=== PATIENT | female | born 1935 | race American Indian/Alaskan Native ===

== ENCOUNTER 2017-10-23 09:32 | Day surgery (SDC) | payer MEDICARE, OTHER ==
[2015-08-13 08:25] VITALS: BMI 34.4
[2017-10-23] MEDS ORDERED: Midazolam 2 MG/2 ML VIAL ONE (10:39)
--- NOTE | 2017-10-23 11:15 | CP.SDSHP ---
Same Day Surgery H & P - History Proposed Procedure: CT guided pancreatic mass biopsy Pre-Op Diagnosis: Pancreatic mass - Allergies Allergies: Allergies No Known Allergies Allergy (Verified 08/13/15 08:36) - Physical Exam Mental Status: Alert & Oriented x3 - Impression Impression: Pt with large pancreatic body mass. Plan CT guided core biopsy. INformed consent obtained and risk of vascular injury, visceral injury and bowel perforation discussed. Pt. Evaluated Today:Candidate for Anesthesia & Procedure: Yes (ASA 3 Malampati 3) - Date & Time Date: 10/23/17 Time: 11:45 Short Stay Discharge - Short Stay Discharge Admitting Diagnosis/Reason for Visit: MALIGNANT NEOPLASM OF UNSPECIFIED SITE OF LEFT FEM Disposition: HOME/ ROUTINE
--- NOTE | 2017-10-23 11:16 | PCM.SURG1 ---
Surgeon's Initial Post Op Note - Surgeon's Notes Surgeon: Marko Mejia MD [employer] Program Chair: NONE Type of Anesthesia: IV Sedation Pre-Operative Diagnosis: Pancreatic cancer Operative Findings: CT showed a large pancreatic body mass Post-Operative Diagnosis: Pancreatic cancer Operation Performed: CT guided pancreatic mass biopsy Specimen/Specimens Removed: 20 gauge core x 3 Estimated Blood Loss: EBL {In ML}: 0 Blood Products Given: N/A Drains Used: No Drains Post-Op Condition: Fair Date of Surgery/Procedure: 10/23/17 Time of Surgery/Procedure: 11:00
--- NOTE | 2017-10-24 13:04 | CT ---
PROCEDURE: Date of procedure: 10/23/2017 Procedure: 1. CT-guided percutaneous core biopsy of pancreatic mass, CPT [address] guidance for biopsy, CPT 15953 Medications: The patient was sedated by the anesthesiologist with IV sedation and monitoring, 5 cc 1% lidocaine. HISTORY: Pancreatic mass TECHNIQUE: Following informed consent, the Pt's Abdomen was marked. The Pt was placed supine on the CT table and procedure time out was performed. A noncontrast CT scan confirmed the presence of the 5 centimeter pancreatic body mass. A skin localizer was placed on the patient's abdomen and a repeat CT scan performed. The skin was prepped and draped in the usual sterile fashion. After the patient was sedated by anesthesiologist and the skin anesthetized with 1% lidocaine, a 20 gauge core needle was advanced percutaneously under direct CT guidance into the mass. Upon confirmation of needle position, three core specimens were obtained and sent for routine pathology. A post biopsy CT scan performed showed no hematoma or free air. A dressing was applied. IMPRESSION: CT-guided core biopsy of pancreatic body mass.
== END 2017-10-23 13:00 | disposition home or self-care (01) ==
LOC: C.CATHLAB 09:32 → C.SPRAD 09:32 → C.CATHLAB 13:00
PROVIDERS: ATTEND Radiology Vascular & Interventional Radiology
DX: C25.1 Malignant neoplasm of body of pancreas (principal); E11.9 Type 2 diabetes mellitus without complications; E78.5 Hyperlipidemia, unspecified; I10 Essential (primary) hypertension; Z79.84 Long term (current) use of oral hypoglycemic drugs
CPT/HCPCS: 48102; 77012; 88307; J2250; J3010

== ENCOUNTER 2018-03-02 09:01 | Emergency (ER) | payer MEDICARE, OTHER ==
[2018-03-02 09:01] VITALS: BMI 34.4
[2018-03-02 09:20] VITALS: BP 120/72; PULSE 82; RESP 16; TEMP 99.3; O2SAT 97
--- NOTE | 2018-03-02 09:32 | C.PDOC ---
History Of Present Illness 82-YEAR-OLD FEMALE, PRESENTS TO THE EMERGENCY DEPARTMENT WITH COMPLAINTS OF BREAKTHROUGH CANCER PAIN ONGOING SINCE YESTERDAY. PT CURRENTLY TREATED FOR PANCREATIC CA, DR NICE PREVIOUSLY PRESCRIBED TYL/CODEINE, BUT TOLD PT HE WILL BE UNABLE TO PRESCRIBE IT FOR HER GOING FORWARD. SHE NORMALLY TAKES IT EVERYDAY , BUT RAN OUT ONE WEEK AGO. CURRENT PAIN IS SIMILAR TO PREVIOUS CA PAIN, STATES "EVERYTHING HURTS." DENIES ANY VOMITING, FEVER. EXAM NAD NON TOXIC ABD SOFT, NONTEN, NO R/G REMAINDER NEG Chief Complaint (Nursing): Pain, Chronic History Per: Patient History/Exam Limitations: no limitations Onset/Duration Of Symptoms: Days Current Symptoms Are (Timing): Still Present Severity: Moderate Past Medical History Reviewed: Historical Data, Nursing Documentation, Vital Signs Vital Signs: Last Vital Signs Temp 99.3 F 03/02/18 09:05 Pulse 82 03/02/18 09:05 Resp 16 03/02/18 09:05 BP 120/72 03/02/18 09:05 Pulse Ox 97 03/02/18 09:47 - Medical History PMH: Anemia, Arthritis (KNEES), Colonic Polyps, HTN, Hypercholesterolemia Denies: CHF, Chronic Kidney Disease Surgical History: Endoscopy - [facility] Procedures ENDOSC POLYPECTOMY OF LG INTEST (04/28/14) Family History: States: No Known Family Hx - Social History Hx Tobacco Use: No Hx Alcohol Use: No Hx Substance Use: No - Immunization History Hx Tetanus Toxoid Vaccination: No Hx Influenza Vaccination: No Hx Pneumococcal Vaccination: Yes Review Of Systems Constitutional: Positive for: Malaise. Negative for: Fever, Chills Cardiovascular: Negative for: Chest Pain, Palpitations Respiratory: Negative for: Shortness of Breath Gastrointestinal: Negative for: Nausea, Vomiting Musculoskeletal: Negative for: Neck Pain, Back Pain Neurological: Negative for: Weakness, Numbness, Headache, Dizziness Physical Exam - Physical Exam Appears: Non-toxic, No Acute Distress Skin: Normal Color, Warm, Dry, No Rash Head: Atraumatic, Normacephalic Eye(s): bilateral: Normal Inspection, PERRL Nose: Normal Oral Mucosa: Moist Lips: Normal Appearing Neck: Normal ROM Cardiovascular: Rhythm Regular, No Murmur Respiratory: Normal Breath Sounds, No Accessory Muscle Use Gastrointestinal/Abdominal: Soft, No Tenderness, No Guarding, No Rebound Extremity: Normal ROM, No Deformity, No Swelling Neurological/Psych: Oriented x3, Normal Speech ED Course And Treatment O2 Sat by Pulse Oximetry: 97 (ra) Pulse Ox Interpretation: Normal Progress - Re-Evaluation Re-evaluation Note: 03/02/18 09:17 nj rx REVIEWED 01/22/2018 DRONABINOL 2.5 MG CAPSULE 30.0 30 [id number] 01/04/2018 ACETAMINOPHEN-COD #3 TABLET 50.0 10 WA SIE Medical Decision Making Medical Decision Making: PAIN MANAGEMENT REFERRAL GIVEN, PT AADVISED NEED FOR LONG-TERM F.U Disposition Counseled Patient/Family Regarding: Diagnosis, Need For Followup - Disposition Referrals: Eddie Salazar MD [Staff Provider] - Disposition: HOME/ ROUTINE Disposition Time: 09:32 Condition: IMPROVED Prescriptions: Acetaminophen with Codeine [Tylenol with Codeine No. 3 300 mg-30 mg] 1 tab PO Q6 #15 tab Instructions: Chronic Pain (DC) Forms: The [employer]oken [employer] (Yakut) - Clinical Impression Clinical Impression: Chronic pain - Scribe Statement The provider has reviewed the documentation as recorded by the Scribe (Kevin Lawson) All medical record entries made by the Scribe were at my direction and personally dictated by me. I have reviewed the chart and agree that the record accurately reflects my personal performance of the history, physical exam, medical decision making, and the department course for this patient. I have also personally directed, reviewed, and agree with the discharge instructions and disposition.
[2018-03-02] MEDS ORDERED: Acetaminophen-Codeine 300/30 mg Tab PO STA (09:33)
[2018-03-02] MEDS ORDERED: Acetaminophen-Codeine 300/30 mg Tab PO ONE (09:41)
== END 2018-03-02 09:46 | disposition home or self-care (01) ==
LOC: C.ER 09:01
DX: G89.29 Other chronic pain (principal); C25.1 Malignant neoplasm of body of pancreas

== ENCOUNTER 2018-03-19 13:45 | Inpatient (IN) | payer MEDICARE, OTHER ==
[2018-03-19 13:57] VITALS: BMI 26.2
[2018-03-19] MEDS ORDERED: Sodium Chloride 0.9% 1,000 ML IV ONE ×2 (14:09→18:36)
[2018-03-19] MEDS ORDERED: Sodium Chloride 0.9% 1,000 ML ONE (14:46)
--- NOTE | 2018-03-19 14:55 | C.PDOC ---
History Of Present Illness 83 y/o female with history of Pancreatic carcinoma presents to ED for persistent abdominal pain and constipation associated with x1 episode of vomiting. Patient states 5 days ago she had loose stool and has not had bowel movement since, saw PMD yesterday and was given Tylenol with Codeine for pain with no relief. Patient admits to nausea and states she is unable to tolerate po intake. No other complaints at this time. Time Seen by Provider: 03/19/18 14:04 Chief Complaint (Nursing): Abdominal Pain History Per: Patient History/Exam Limitations: no limitations Onset/Duration Of Symptoms: Days Current Symptoms Are (Timing): Still Present Past Medical History Reviewed: Historical Data, Nursing Documentation, Vital Signs Vital Signs: Last Vital Signs Temp 98.3 F 03/19/18 18:42 Pulse 102 H 03/19/18 18:42 Resp 20 03/19/18 18:42 BP 110/68 03/19/18 18:42 Pulse Ox 98 03/19/18 18:42 - Medical History PMH: Anemia, Arthritis (KNEES), Colonic Polyps, HTN, Hypercholesterolemia Surgical History: Endoscopy - [facility] Procedures ENDOSC POLYPECTOMY OF LG INTEST (04/28/14) Family History: States: No Known Family Hx - Social History Hx Tobacco Use: No Hx Alcohol Use: No Hx Substance Use: No - Immunization History Hx Tetanus Toxoid Vaccination: No Hx Influenza Vaccination: No Hx Pneumococcal Vaccination: Yes Review Of Systems Constitutional: Negative for: Fever, Chills Gastrointestinal: Positive for: Nausea, Vomiting, Abdominal Pain, Constipation Genitourinary: Negative for: Dysuria, Hematuria Skin: Negative for: Rash Physical Exam - Physical Exam Appears: Non-toxic, No Acute Distress Skin: Warm, Dry, No Rash Head: Atraumatic, Normacephalic Eye(s): bilateral: Normal Inspection Oral Mucosa: Dry Neck: Normal ROM, Supple Cardiovascular: Rhythm Regular Respiratory: Normal Breath Sounds, No Rales, No Rhonchi, No Wheezing Gastrointestinal/Abdominal: Soft, Tenderness (Diffuse), Guarding, No Rebound Back: No CVA Tenderness, No Paraspinal Tenderness Neurological/Psych: Oriented x3, Normal Speech, Normal Cognition ED Course And Treatment - Laboratory Results Result Diagrams: 03/19/18 15:20 03/19/18 15:20 Lab Interpretation: Abnormal (Hgb 9.7, Hct 29.7, BUN 35, Cr 1.6 urine WBC 79 with 3+ leukocyte esterase) ECG: Interpreted By Mo ECG Rhythm: Sinus Tachycardia ECG Interpretation: No Acute Changes O2 Sat by Pulse Oximetry: 97 (RA) Pulse Ox Interpretation: Normal - CT Scan/US CT abdomen and pelvis Other Rad Studies (CT/US): Read By Radiologist, Radiology Report Reviewed CT/US Interpretation: Accession No. : [id number]. Patient Name / ID : MAGALIE PINA / [id number]. Exam Date : 03/19/2018 17:38:50 ( Approved ). Study Comment : Sex / Age : F / 83Y. Creator : Heather Anders MD. Dictator : Heather Anders MD. Wood Caulker : Fish Hatchery Manager : Heather Anders MD. Approver2 : Report Date : 03/19/2018 18:21:32. My Comment : . PROCEDURE: CT Abdomen and Pelvis with contrast. HISTORY: Pancreatic cancer with abdominal pain. COMPARISON: None. TECHNIQUE: CT scan of the abdomen and pelvis was performed after administration of intravenous contrast. Oral contrast was administered. Coronal and sagittal reformatted images were obtained. Contrast dose: 100 mL Visipaque. Radiation dose: Total exam DLP = 609.08 mGy-cm. This CT exam was performed using one or more of the following dose reduction techniques: Automated exposure control, adjustment of the mA and/ or kV according to patient size, and/or use of iterative reconstruction technique. FINDINGS: LOWER THORAX: Bilateral small pleural effusions. LIVER : The liver is normal in size and there is diffuse low-attenuation with micronodular contour. There is a 10 mm low-attenuation lesion in the subcapsular right hepatic lobe. No intrahepatic biliary ductal dilatation. GALLBLADDER AND BILE DUCTS: The gallbladder is distended. No calcified gallstones. PANCREAS: There is a large infiltrating mass in the body of the pancreas. The head of the pancreas is not well visualized. There is loss of fat plane between the mass and greater curvature of the stomach and gastric antrum. SPLEEN: Normal in size and appearance. ADRENALS: No discrete nodule. KIDNEYS AND URETERS: Both kidneys are normal in size with homogeneous enhancement. No hydronephrosis. Few simple cysts in the kidneys. VASCULATURE: No aortic aneurysm. BOWEL: The small bowel loops are normal in caliber. There is moderate amount of stool in the ascending and proximal transverse colon. There is extensive left colonic diverticulosis without CT evidence for acute diverticulitis. APPENDIX: Normal appendix. PERITONEUM: There is large abdominal and pelvic ascites. No free air. LYMPH NODES: There are few left para-aortic lymph nodes measuring up to 7 mm. . BLADDER: Unremarkable. REPRODUCTIVE: The uterus is normal in size. BONES: No acute fracture. There is diffuse bone demineralization and multilevel degenerative changes in the spine. OTHER FINDINGS: None. IMPRESSION: 1. Large mass in the body of the pancreas with probable invasion of the greater curvature of the stomach and gastric antrum. 2. Large abdominal and pelvic ascites. Small bilateral pleural effusions. 3. Fatty liver with question of hepatic cirrhosis. 10 mm low- density nodule in the subcapsular right hepatic lobe, metastatic deposit cannot be excluded. 4. Left colonic diverticulosis without CT evidence for acute diverticulitis - Physician Consult Information Time Consulting Physician Contacted: 18:38 Physician Contacted: Andressa Silva Outcome Of Conversation: He knows the patient and agrees to accept her on his service. Disposition - Disposition Disposition: HOSPITALIZED Disposition Time: 19:45 Condition: FAIR - POA Present On Arrival: None - Clinical Impression Clinical Impression: Abdominal pain, Pancreatic cancer - Scribe Statement The provider has reviewed the documentation as recorded by the Ko Antonio All medical record entries made by the Ko were at my direction and personally dictated by me. I have reviewed the chart and agree that the record accurately reflects my personal performance of the history, physical exam, medical decision making, and the department course for this patient. I have also personally directed, reviewed, and agree with the discharge instructions and disposition.
[2018-03-19 15:26] LABS: BASO % 0.3 % (0.0-2.0); EOS % 0.3 % (0.0-4.0); LYMPH # 0.4 K/uL (1.0-4.3); LYMPH % 6.5 % (20.0-40.0); MEAN CORPUSCULAR HEMOGLOBIN 29.7 pg (27.0-31.0); MEAN CORPUSCULAR HGB CONC 32.7 g/dL (33.0-37.0); MEAN PLATELET VOLUME 8.3 fL (7.2-11.7); MONO # 0.7 K/uL (0.0-0.8); NEUT % 80.9 % (50.0-75.0); PLATELET COUNT 209 K/uL (130-400); RBC 3.27 Mil/uL (3.80-5.20)
[2018-03-19 15:27] LABS: HEMOGLOBIN 9.7 g/dL (11.0-16.0); MEAN CELL VOLUME 90.6 fL (81.0-99.0); WHITE BLOOD COUNT 6.2 K/uL (4.8-10.8)
--- NOTE | 2018-03-19 15:30 | RAD ---
PROCEDURE: Radiographs of the chest and abdomen (obstructive series) HISTORY: Pain COMPARISON: No prior. TECHNIQUE: AP radiograph of the chest, with upright and supine radiographs of the abdomen. FINDINGS: CHEST: Lungs: The lungs are well inflated. Small left pleural effusion. Cardiovascular: Normal size heart. No pulmonary vascular congestion. Pleura: No pleural fluid. No pneumothorax. Other findings: None. ABDOMEN AND PELVIS: Bowel: There is moderate amount of stool in the colon. No evidence of mechanical obstruction. Free air: None. Bones: There is severe dextroscoliosis in the lumbar spine and postsurgical changes of lower lumbar fusion. Other findings: None. IMPRESSION: Constipation. Nonobstructive bowel gas pattern. Small left pleural effusion.
[2018-03-19] MEDS ORDERED: Iohexol 240 (50 ml) ONE (15:46)
[2018-03-19 15:53] LABS: BANDS 1 % (0-2); BASOPHIL 1 % (0-2); LYMPHOCYTE 7 % (20-40); MONOCYTE 10 % (0-10); NEUTROPHIL 81 % (50-75); PLATELET ESTIMATE NORMAL (NORMAL); TOTAL CELLS COUNTED 100
[2018-03-19 15:54] LABS: ANISOCYTOSIS SLIGHT; HYPOCHROMIC SLIGHT; OVALOCYTES SLIGHT; POIKILOCYTOSIS SLIGHT; TARGET CELLS SLIGHT
[2018-03-19 15:58] LABS: ALB/GLOB RATIO 0.9 (1.0-2.1); ALBUMIN 3.5 g/dL (3.5-5.0); CALCIUM 9.1 mg/dl (8.6-10.4)
[2018-03-19 16:37] LABS: SQUAMOUS EPITHIAL 30 /hpf (0-5); URINE BACTERIA RARE (<OCC); URINE BILIRUBIN NEGATIVE (NEGATIVE); URINE BLOOD NEGATIVE (NEGATIVE); URINE CLARITY Hazy (Clear); URINE COLOR Amber (YELLOW); URINE GLUCOSE (UA) NORMAL (Normal); URINE LEUKOCYTE ESTERASE 3+ Leu/uL (Negative); URINE PROTEIN 2+ mg/dL (NEGATIVE)
[2018-03-19] MEDS ORDERED: Iodixanol 320 MG/ML 100 ML BOTTLE IV ONE (17:26)
--- NOTE | 2018-03-19 18:23 | CT ---
PROCEDURE: CT Abdomen and Pelvis with contrast HISTORY: Pancreatic cancer with abdominal pain COMPARISON: None. TECHNIQUE: CT scan of the abdomen and pelvis was performed after administration of intravenous contrast. Oral contrast was administered. Coronal and sagittal reformatted images were obtained. Contrast dose: 100 mL Visipaque Radiation dose: Total exam DLP = 609.08 mGy-cm. This CT exam was performed using one or more of the following dose reduction techniques: Automated exposure control, adjustment of the mA and/or kV according to patient size, and/or use of iterative reconstruction technique. FINDINGS: LOWER THORAX: Bilateral small pleural effusions. LIVER: The liver is normal in size and there is diffuse low-attenuation with micronodular contour. There is a 10 mm low-attenuation lesion in the subcapsular right hepatic lobe. No intrahepatic biliary ductal dilatation. GALLBLADDER AND BILE DUCTS: The gallbladder is distended. No calcified gallstones. PANCREAS: There is a large infiltrating mass in the body of the pancreas. The head of the pancreas is not well visualized. There is loss of fat plane between the mass and greater curvature of the stomach and gastric antrum. SPLEEN: Normal in size and appearance. ADRENALS: No discrete nodule. KIDNEYS AND URETERS: Both kidneys are normal in size with homogeneous enhancement. No hydronephrosis. Few simple cysts in the kidneys. VASCULATURE: No aortic aneurysm. BOWEL: The small bowel loops are normal in caliber. There is moderate amount of stool in the ascending and proximal transverse colon. There is extensive left colonic diverticulosis without CT evidence for acute diverticulitis. APPENDIX: Normal appendix. PERITONEUM: There is large abdominal and pelvic ascites. No free air. LYMPH NODES: There are few left para-aortic lymph nodes measuring up to 7 mm. . BLADDER: Unremarkable. REPRODUCTIVE: The uterus is normal in size. BONES: No acute fracture. There is diffuse bone demineralization and multilevel degenerative changes in the spine. OTHER FINDINGS: None. IMPRESSION: 1. Large mass in the body of the pancreas with probable invasion of the greater curvature of the stomach and gastric antrum. 2. Large abdominal and pelvic ascites. Small bilateral pleural effusions. 3. Fatty liver with question of hepatic cirrhosis. 10 mm low-density nodule in the subcapsular right hepatic lobe, metastatic deposit cannot be excluded. 4. Left colonic diverticulosis without CT evidence for acute diverticulitis
[2018-03-19 21:49] VITALS: RESP 20
[2018-03-19] MEDS ORDERED: HYDROmorphone 1 mg/ml ISec IVP PRN (22:23)
[2018-03-19] MEDS ORDERED: Dextrose 5%/0.45% NS 1,000 ML IV SCH (22:45)
--- NOTE | 2018-03-20 00:34 | CP.PCM.PN ---
Subjective - Date & Time of Evaluation Date of Evaluation: 03/20/18 Time of Evaluation: 07:00 - Subjective Subjective: Patient was alert and oriented x3. Patient stated she was in [facility]; year 2017; month February; day of the week - soon to be ; current president Carlos Bonilla. Patient signed against medical advice. Objective - Vital Signs/Intake and Output Vital Signs (last 24 hours): Temp Pulse Resp BP Pulse Ox 98.3 F 101 H 20 152/82 H 96 03/19/18 21:30 03/19/18 21:30 03/19/18 21:30 03/19/18 21:30 03/19/18 21:30 - Medications Medications: Current Medications Dicyclomine HCl (Bentyl) 10 mg PO QID BANDAR Dronabinol (Marinol) 2.5 mg PO BID BANDAR Heparin Sodium (Porcine) (Heparin) 5,000 units SC Q8 BANDAR Hydromorphone HCl (Dilaudid) 1 mg IVP Q4H PRN PRN Reason: Pain, moderate (4-7) Dextrose/Sodium Chloride (Dextrose 5%/0.45% Ns 1000 Ml) 1,000 mls @ 100 mls/hr IV .Q10H BANDAR Losartan Potassium (Cozaar) 100 mg PO DAILY BANDAR Metformin HCl (Glucophage) 500 mg PO BIDPC BANDAR Pantoprazole Sodium (Protonix Ec Tab) 40 mg PO DAILY BANDAR Tamoxifen Citrate (Nolvadex) 20 mg PO DAILY BANDAR - Labs Labs: 03/19/18 15:20 03/19/18 15:20
[2018-03-20 02:09] VITALS: BP 145/85; PULSE 98; TEMP 98.5; O2SAT 98
[2018-03-20] MEDS ORDERED: Pantoprazole 40 mg EC Tab PO SCH (10:00)
== END 2018-03-20 00:36 | disposition left against medical advice (07) | DRG 392 ==
LOC: C.ER 13:45 → C.9E 19:46 → C.3T 20:49
PROVIDERS: ADMIT Internal Medicine Critical Care Medicine; ATTEND Internal Medicine Critical Care Medicine
DX: R10.9 Unspecified abdominal pain (principal); I10 Essential (primary) hypertension; K59.00 Constipation, unspecified; M17.0 Bilateral primary osteoarthritis of knee; E78.00 Pure hypercholesterolemia, unspecified; R11.0 Nausea; Z85.07 Personal history of malignant neoplasm of pancreas

== ENCOUNTER 2018-03-21 21:00 | Inpatient (IN) | payer MEDICARE, OTHER ==
[2018-03-21 21:00] VITALS: BMI 26.2
[2018-03-21] MEDS ORDERED: Morphine 4 MG/ML VIAL IV STA (21:34)
[2018-03-21 21:41] LABS: BASO % 0.3 % (0.0-2.0); EOS % 0.4 % (0.0-4.0); HEMOGLOBIN 9.7 g/dL (11.0-16.0); LYMPH # 0.6 K/uL (1.0-4.3); LYMPH % 7.9 % (20.0-40.0); MEAN CELL VOLUME 91.6 fL (81.0-99.0); MEAN CORPUSCULAR HEMOGLOBIN 29.6 pg (27.0-31.0); MEAN CORPUSCULAR HGB CONC 32.3 g/dL (33.0-37.0); MEAN PLATELET VOLUME 8.3 fL (7.2-11.7); MONO # 0.7 K/uL (0.0-0.8); MONO % 9.8 % (0.0-10.0); NEUT # 6.2 K/uL (1.8-7.0); NEUT % 81.6 % (50.0-75.0); NRBC % 0.1 % (0.0-2.0); PLATELET COUNT 173 K/uL (130-400); RBC 3.29 Mil/uL (3.80-5.20); RED CELL DISTRIBUTION WIDTH 14.7 % (11.5-14.5); WHITE BLOOD COUNT 7.6 K/uL (4.8-10.8)
[2018-03-21] MEDS ORDERED: Morphine 4 MG/ML VIAL ONE (21:50)
[2018-03-21 21:56] LABS: ALB/GLOB RATIO 0.9 (1.0-2.1); ALBUMIN 3.2 g/dL (3.5-5.0); CALCIUM 8.7 mg/dl (8.6-10.4); GFR AFRICAN-AMERICAN > 60; GFR NON-AFRICAN AMERICAN 53; LIPASE 29 U/L (23-300)
[2018-03-21 21:59] LABS: ALT/SGPT 30 U/L (9-52); AST/SGOT 47 U/L (14-36); BLOOD UREA NITROGEN 42 mg/dL (7-17)
[2018-03-21 22:07] LABS: LYMPHOCYTE 7 % (20-40); MONOCYTE 4 % (0-10); NEUTROPHIL 89 % (50-75); PLATELET ESTIMATE NORMAL (NORMAL); TOTAL CELLS COUNTED 100
[2018-03-21 22:08] LABS: HYPOCHROMIC SLIGHT; OVALOCYTES SLIGHT; POLYCHROMIC SLIGHT
[2018-03-21] MEDS: Sodium Chloride 0.9% 1,000 ML IV SCH (22:21)
--- NOTE | 2018-03-22 00:23 | C.PDOC ---
History Of Present Illness 83 year old female with a Hx of pancreatic ca presents to the ER with a complaint of diffuse abdominal pain and decreased PO intake. Patient was seen for the same symptoms 2 days ago and was admitted but signed out AMA yesterday. Patient states she continues to be in pain. She reports positive nausea but denies vomiting, blood in the stool, or blood in the urine. Chief Complaint (Nursing): Abdominal Pain History Per: Patient History/Exam Limitations: no limitations Onset/Duration Of Symptoms: Days Current Symptoms Are (Timing): Still Present Location Of Pain/Discomfort: Diffuse Radiation Of Pain To:: None Quality Of Discomfort: Unable To Describe Associated Symptoms: Nausea. denies: Vomiting, Urinary Symptoms, Other (Blood in stool) Exacerbating Factors: None Alleviating Factors: None Recent travel outside of the [place]: No Abnormal Vaginal Bleeding: No Past Medical History Reviewed: Historical Data, Nursing Documentation, Vital Signs Vital Signs: Last Vital Signs Temp 98.7 F 03/22/18 00:10 Pulse 116 H 03/22/18 00:10 Resp 20 03/22/18 00:10 BP 102/66 03/22/18 00:10 Pulse Ox 97 03/22/18 00:29 - Medical History PMH: Anemia, Arthritis (KNEES), Colonic Polyps, HTN, Hypercholesterolemia Surgical History: Endoscopy - [facility] Procedures ENDOSC POLYPECTOMY OF LG INTEST (04/28/14) Family History: States: No Known Family Hx - Social History Hx Tobacco Use: No Hx Alcohol Use: No Hx Substance Use: No - Immunization History Hx Tetanus Toxoid Vaccination: No Hx Influenza Vaccination: No Hx Pneumococcal Vaccination: Yes Review Of Systems Constitutional: Negative for: Fever, Chills Cardiovascular: Negative for: Chest Pain, Palpitations Respiratory: Negative for: Cough, Shortness of Breath Gastrointestinal: Positive for: Nausea, Abdominal Pain. Negative for: Vomiting , Other (Blood in stool) Genitourinary: Negative for: Hematuria Physical Exam - Physical Exam Appears: Non-toxic Skin: Normal Color, Warm, Dry Head: Atraumatic, Normacephalic Eye(s): bilateral: Normal Inspection Oral Mucosa: Dry Neck: Normal, Supple Chest: Symmetrical, No Tenderness Cardiovascular: Rhythm Regular Respiratory: Normal Breath Sounds, No Rales, No Rhonchi, No Wheezing Gastrointestinal/Abdominal: Soft, Tenderness (Diffuse), Distention (Slightly), No Guarding, No Rebound Back: No CVA Tenderness Neurological/Psych: Oriented x3, Normal Speech ED Course And Treatment - Laboratory Results Result Diagrams: 03/21/18 21:34 03/21/18 21:34 O2 Sat by Pulse Oximetry: 97 (Room air) Pulse Ox Interpretation: Normal Progress Note: Blood work and urinalysis ordered. Morphine and IV fluids administered. Disposition - Disposition Disposition: HOSPITALIZED Disposition Time: 22:40 Condition: FAIR - Clinical Impression Clinical Impression: Abdominal pain, Pancreatic cancer - Scribe Statement The provider has reviewed the documentation as recorded by the Scribromeo Mccarthy All medical record entries made by the eRidibromeo were at my direction and personally dictated by me. I have reviewed the chart and agree that the record accurately reflects my personal performance of the history, physical exam, medical decision making, and the department course for this patient. I have also personally directed, reviewed, and agree with the discharge instructions and disposition.
[2018-03-22 00:39] VITALS: RESP 20
[2018-03-22] MEDS: Sodium Chloride 0.9% 1,000 ML IV SCH ×3 (06:10→17:51)
[2018-03-22] MEDS: Pantoprazole 40 mg EC Tab PO SCH (09:57)
--- NOTE | 2018-03-22 17:01 | CP.PCM.CON ---
Addendum entered and electronically signed by Miranda Enriquez DO 03/23/18 06:27: Pt refusing surgical care. Advance diet as tolerated Pain control/Nausea control We will sign off. HANDY Reis Original Note: <Miranda Enriquez - Last Filed: 03/22/18 17:02> History of Present Illness - History of Present Illness History of Present Illness: Surgery 83 F w recent dx of pancreatic CA this year came with abd pain and vomiting. Pain in located on mid abd area and doesn't radiate. Reports nausea , vomiting gastric content, anorexia and recent weight loss. denies fever, diarrhea, hematochezia, hematemeis, hematuria. Pt was admitted earlier this week for same symptoms but left AMA when she felt better. NGT was placed at that time for obstructive sx. currently pt is comfortable and denies vomiting. Refusing NGT. 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 PT underwent radiation therapy at [facility] and completed the therapy. Pt had spoken about possible surgical resection in the past with different surgeon at [facility] but because of her age, cormorbidity and risks involved with surgery, pt declined to do surgery. PMH: HTN, pancreatic CA s/p radiation therapy PSH: None SS: former smoker, drinks occasionally, denies drug abuse. Past Patient History - Infectious Disease Hx of Infectious Diseases: None - Tetanus Immunizations Tetanus Immunization: Unknown - Past Medical History & Family History Past Medical History?: Yes - Past Social History Smoking Status: Never Smoked - CARDIAC Hx Hypercholesterolemia: Yes Hx Hypertension: Yes - PULMONARY Hx Respiratory Disorders: No - NEUROLOGICAL Hx Neurological Disorder: No Other/Comment: "NO LONGER ON GABAPENTIN-NO FURTHER TINGLING." - HEENT Hx HEENT Problems: Yes Hx Cataracts: Yes (BILAT.) - RENAL Hx Chronic Kidney Disease: No - ENDOCRINE/METABOLIC Hx Endocrine Disorders: Yes Hx Diabetes Mellitus Type 2: Yes - HEMATOLOGICAL/ONCOLOGICAL Hx Anemia: Yes - INTEGUMENTARY Hx Dermatological Problems: No - MUSCULOSKELETAL/RHEUMATOLOGICAL Hx Arthritis: Yes (KNEES) - GASTROINTESTINAL Hx Gastrointestinal Disorders: Yes Other/Comment: HX: PANCREATIC MASS - GENITOURINARY/GYNECOLOGICAL Hx Genitourinary Disorders: No - PSYCHIATRIC Hx Substance Use: No - SURGICAL HISTORY Other/Comment: Left breast lumpectomy - ANESTHESIA Hx Anesthesia: Yes Hx Anesthesia Reactions: No Hx Malignant Hyperthermia: No Meds Allergies/Adverse Reactions: Allergies Allergy/AdvReac Type Severity Reaction Status Date / Time No Known Allergies Allergy Verified 03/21/18 21:12 - Medications Medications: Current Medications Dicyclomine HCl (Bentyl) 10 mg PO QID [facility] Last Admin: 03/22/18 14:17 Dose: 10 mg Dronabinol (Marinol) 2.5 mg PO DAILY [facility] Last Admin: 03/22/18 09:57 Dose: 2.5 mg Heparin Sodium (Porcine) (Heparin) 5,000 units SC Q8 [facility] Last Admin: 03/22/18 14:17 Dose: 5,000 units Hydromorphone HCl (Dilaudid) 1 mg IVP Q4H PRN PRN Reason: Pain, severe (8-10) Sodium Chloride (Sodium Chloride 0.9%) 1,000 mls @ 100 mls/hr IV .Q10H [facility] Last Admin: 03/22/18 08:00 Dose: Not Given Losartan Potassium (Cozaar) 100 mg PO DAILY [facility] Last Admin: 03/22/18 09:57 Dose: 100 mg Metformin HCl (Glucophage) 500 mg PO BID [facility] Last Admin: 03/22/18 09:46 Dose: Not Given Ondansetron HCl (Zofran Inj) 4 mg IVP Q4H PRN PRN Reason: nausea,vomiting Pantoprazole Sodium (Protonix Ec Tab) 40 mg PO DAILY [facility] Last Admin: 03/22/18 09:57 Dose: 40 mg Tamoxifen Citrate (Nolvadex) 20 mg PO DAILY [facility] Last Admin: 03/22/18 10:04 Dose: 20 mg Physical Exam - Constitutional Appears: No Acute Distress - Head Exam Head Exam: ATRAUMATIC, NORMAL INSPECTION, NORMOCEPHALIC - Eye Exam Eye Exam: EOMI, Normal appearance, PERRL Pupil Exam: NORMAL ACCOMODATION, PERRL - Neck Exam Neck exam: Positive for: Normal Inspection - Respiratory Exam Respiratory Exam: NORMAL BREATHING PATTERN - Cardiovascular Exam Cardiovascular Exam: Tachycardia, REGULAR RHYTHM, +S1, +S2 - GI/Abdominal Exam GI & Abdominal Exam: Soft, Tenderness. absent: Distended, Firm, Guarding, Hernia, Rebound, Rigid Additional comments: mild fluid waves - Exam Exam: NORMAL INSPECTION - Extremities Exam Extremities exam: Positive for: full ROM, normal inspection - Back Exam Back exam: NORMAL INSPECTION - Neurological Exam Neurological exam: Alert, CN II-XII Intact, Normal Gait, Oriented x3, Reflexes Normal - Psychiatric Exam Psychiatric exam: Normal Affect, Normal Mood - Skin Skin Exam: Dry, Intact, Normal Color, Warm Results - Vital Signs Recent Vital Signs: Last Vital Signs Temp 97.3 F L 03/22/18 15:00 Pulse 110 H 03/22/18 15:00 Resp 20 03/22/18 15:00 BP 167/80 H 03/22/18 15:00 Pulse Ox 98 03/22/18 15:00 - Labs Result Diagrams: 03/21/18 21:34 03/21/18 21:34 Labs: Laboratory Results - last 24 hr 03/21/18 03/21/18 03/22/18 21:34 21:34 06:16 WBC 7.6 RBC 3.29 L Hgb 9.7 L Hct 30.1 L MCV 91.6 MCH 29.6 MCHC 32.3 L RDW 14.7 H Plt Count 173 MPV 8.3 Neut % (Auto) 81.6 H Lymph % (Auto) 7.9 L [place] % (Auto) 9.8 Eos % (Auto) 0.4 Baso % (Auto) 0.3 Neut # (Auto) 6.2 Lymph # (Auto) 0.6 L [place] # (Auto) 0.7 Eos # (Auto) 0.0 Baso # (Auto) 0.0 Neutrophils % (Manual) 89 H Lymphocytes % (Manual) 7 L Monocytes % (Manual) 4 Platelet Estimate Normal Polychromasia Slight Hypochromasia (manual) Slight Ovalocytes Slight Sodium 140 Potassium 5.2 Chloride 102 Carbon Dioxide 24 Anion Gap 20 BUN 42 H Creatinine 1.0 Est GFR ( Amer) > 60 Est GFR (Non-Af Amer) 53 POC Glucose (mg/dL) 149 H Random Glucose 166 H Calcium 8.7 Total Bilirubin 1.0 AST 47 H ALT 30 Alkaline Phosphatase 56 Total Protein 7.0 Albumin 3.2 L Globulin 3.8 Albumin/Globulin Ratio 0.9 L Lipase 29 03/22/18 12:03 WBC RBC Hgb Hct MCV MCH MCHC RDW Plt Count MPV Neut % (Auto) Lymph % (Auto) [place] % (Auto) Eos % (Auto) Baso % (Auto) Neut # (Auto) Lymph # (Auto) [place] # (Auto) Eos # (Auto) Baso # (Auto) Neutrophils % (Manual) Lymphocytes % (Manual) Monocytes % (Manual) Platelet Estimate Polychromasia Hypochromasia (manual) Ovalocytes Sodium Potassium Chloride Carbon Dioxide Anion Gap BUN Creatinine Est GFR ( Amer) Est GFR (Non-Af Amer) POC Glucose (mg/dL) 161 H Random Glucose Calcium Total Bilirubin AST ALT Alkaline Phosphatase Total Protein Albumin Globulin Albumin/Globulin Ratio Lipase Assessment & Plan - Assessment and Plan (Free Text) Assessment: 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 Reis <Maco Reis - Last Filed: 03/23/18 20:43> Meds - Medications Medications: Current Medications Dicyclomine HCl (Bentyl) 10 mg PO QID [facility] Last Admin: 03/23/18 18:24 Dose: 10 mg Dronabinol (Marinol) 2.5 mg PO DAILY [facility] Last Admin: 03/23/18 09:47 Dose: 2.5 mg Heparin Sodium (Porcine) (Heparin) 5,000 units SC Q8 [facility] Last Admin: 03/23/18 13:15 Dose: 5,000 units Hydromorphone HCl (Dilaudid) 1 mg IVP Q4H PRN PRN Reason: Pain, severe (8-10) Last Admin: 03/22/18 23:58 Dose: 1 mg Sodium Chloride (Sodium Chloride 0.9%) 1,000 mls @ 100 mls/hr IV .Q10H [facility] Last Admin: 03/23/18 13:22 Dose: 100 mls/hr Losartan Potassium (Cozaar) 100 mg PO DAILY [facility] Last Admin: 03/23/18 09:42 Dose: 100 mg Metformin HCl (Glucophage) 500 mg PO BID [facility] Last Admin: 03/23/18 18:24 Dose: Not Given Ondansetron HCl (Zofran Inj) 4 mg IVP Q4H PRN PRN Reason: nausea,vomiting Pantoprazole Sodium (Protonix Ec Tab) 40 mg PO DAILY [facility] Last Admin: 03/23/18 09:42 Dose: 40 mg Tamoxifen Citrate (Nolvadex) 20 mg PO DAILY [facility] Last Admin: 03/23/18 09:42 Dose: 20 mg Results - Vital Signs Recent Vital Signs: Last Vital Signs Temp 98 F 03/23/18 15:00 Pulse 120 H 03/23/18 15:00 Resp 20 03/23/18 15:00 BP 108/68 03/23/18 15:00 Pulse Ox 97 03/23/18 15:00 - Labs Result Diagrams: 03/21/18 21:34 03/21/18 21:34 Labs: Laboratory Results - last 24 hr 03/22/18 03/22/18 03/23/18 16:24 21:27 06:29 POC Glucose (mg/dL) 133 H 124 H 136 H 03/23/18 03/23/18 11:23 16:13 POC Glucose (mg/dL) 123 H 104 Attending/Attestation - Attestation I have personally seen and examined this patient.: Yes I have fully participated in the care of the patient.: Yes I have reviewed all pertinent clinical information: Yes Notes (Text): Pt was seen and examined at bedside Agree with above note and assessment Pt with advanced stage pancreatic cancer Labs and radiology reviewed Ass: Advanced stage pancreatic cancer Pt is refusing any surgical intervention C.w current mx Hospice care Plan d.w pt in detail Risk and benefit explained in detail
[2018-03-22 19:37] LABS: SQUAMOUS EPITHIAL 65 /hpf (0-5); URINE BACTERIA MANY (<OCC); URINE BILIRUBIN NEGATIVE (NEGATIVE); URINE BLOOD 1+ (NEGATIVE); URINE CLARITY Hazy (Clear); URINE COLOR Amber (YELLOW); URINE GLUCOSE (UA) NORMAL (Normal); URINE LEUKOCYTE ESTERASE 3+ Leu/uL (Negative); URINE PROTEIN 1+ mg/dL (NEGATIVE)
[2018-03-22] MEDS: HYDROmorphone 0.5 mg/0.5 ml ISec IVP PRN (23:58)
[2018-03-23] MEDS: Sodium Chloride 0.9% 1,000 ML IV SCH ×2 (03:00→13:22)
[2018-03-23] MEDS: Pantoprazole 40 mg EC Tab PO SCH (09:42)
--- NOTE | 2018-03-23 10:57 | CP.PCM.CON ---
History of Present Illness - History of Present Illness History of Present Illness: This is an 83 year old woman admitted 03/21/18 with abdominal manuel and vomiting. Patient has a known history of carcinoma of the pancreatic body, diagnosed in September,, after a scan showed a mass in the pancreatic body. Repaeat PET scan 12/03/2017 showed slight enlargement of the mass. She has been followed by Dr. Shea, and had received radiation therapy, but the details of treatment are not available at present. She presented to the ER on 03/19/2018 with abdominal pain, constipation and vomiting. CT scan showed a large mass in the body of the pancreas with loss of the fat plane between the mass and the greater curvature of the stomach and the gastric antrum. The scan also showed large abdominal and pelvic ascites. An NG tube was placed, but the patient then signed out AMA. Patient returned to the ER on 03/21/2018 with similar complaints, along with decreased oral intake. She reports having a poor appetite, and has lost over 100 pounds in the past six months. She continues to complain of nausea and vomiting. She denies having heartburn and difficulty swallowing. She is constipated but denies having rectal bleeding. A colonoscopy was performed 04/28/[address] Harper, This showed a tubular adenoma and internal hemorrhoids. Review of Systems - Review of Systems All systems: reviewed and no additional remarkable complaints except - Constitutional Constitutional: absent: Chills, Fever - Cardiovascular Cardiovascular: absent: Chest Pain, Palpitations - Respiratory Respiratory: absent: Cough, Dyspnea - Gastrointestinal Gastrointestinal: Abdominal Pain, Constipation, Nausea, Vomiting. absent: Diarrhea, Dysphagia, Heartburn, Hematochezia - Genitourinary Genitourinary: absent: Hematuria Past Patient History - Infectious Disease Hx of Infectious Diseases: None - Tetanus Immunizations Tetanus Immunization: Unknown - Past Medical History & Family History Past Medical History?: Yes - Past Social History Smoking Status: Never Smoked - CARDIAC Hx Hypercholesterolemia: Yes Hx Hypertension: Yes - PULMONARY Hx Respiratory Disorders: No - NEUROLOGICAL Hx Neurological Disorder: No Other/Comment: "NO LONGER ON GABAPENTIN-NO FURTHER TINGLING." - HEENT Hx HEENT Problems: Yes Hx Cataracts: Yes (BILAT.) - RENAL Hx Chronic Kidney Disease: No - ENDOCRINE/METABOLIC Hx Endocrine Disorders: Yes Hx Diabetes Mellitus Type 2: Yes - HEMATOLOGICAL/ONCOLOGICAL Hx Anemia: Yes - INTEGUMENTARY Hx Dermatological Problems: No - MUSCULOSKELETAL/RHEUMATOLOGICAL Hx Arthritis: Yes (KNEES) - GASTROINTESTINAL Hx Gastrointestinal Disorders: Yes Other/Comment: HX: PANCREATIC MASS - GENITOURINARY/GYNECOLOGICAL Hx Genitourinary Disorders: No - PSYCHIATRIC Hx Substance Use: No - SURGICAL HISTORY Other/Comment: Left breast lumpectomy - ANESTHESIA Hx Anesthesia: Yes Hx Anesthesia Reactions: No Hx Malignant Hyperthermia: No Meds Allergies/Adverse Reactions: Allergies Allergy/AdvReac Type Severity Reaction Status Date / Time No Known Allergies Allergy Verified 03/21/18 21:12 - Medications Medications: Current Medications Dicyclomine HCl (Bentyl) 10 mg PO QID [facility] Last Admin: 03/23/18 09:44 Dose: 10 mg Dronabinol (Marinol) 2.5 mg PO DAILY [facility] Last Admin: 03/23/18 09:47 Dose: 2.5 mg Heparin Sodium (Porcine) (Heparin) 5,000 units SC Q8 [facility] Last Admin: 03/23/18 05:09 Dose: 5,000 units Hydromorphone HCl (Dilaudid) 1 mg IVP Q4H PRN PRN Reason: Pain, severe (8-10) Last Admin: 03/22/18 23:58 Dose: 1 mg Sodium Chloride (Sodium Chloride 0.9%) 1,000 mls @ 100 mls/hr IV .Q10H [facility] Last Admin: 03/23/18 03:00 Dose: 100 mls/hr Losartan Potassium (Cozaar) 100 mg PO DAILY [facility] Last Admin: 03/23/18 09:42 Dose: 100 mg Metformin HCl (Glucophage) 500 mg PO BID [facility] Last Admin: 03/23/18 09:42 Dose: 500 mg Ondansetron HCl (Zofran Inj) 4 mg IVP Q4H PRN PRN Reason: nausea,vomiting Pantoprazole Sodium (Protonix Ec Tab) 40 mg PO DAILY [facility] Last Admin: 03/23/18 09:42 Dose: 40 mg Tamoxifen Citrate (Nolvadex) 20 mg PO DAILY [facility] Last Admin: 03/23/18 09:42 Dose: 20 mg Physical Exam - Head Exam Head Exam: ATRAUMATIC, NORMOCEPHALIC - Eye Exam Eye Exam: EOMI, PERRL - Neck Exam Neck exam: Negative for: Lymphadenopathy, Thyromegaly - Respiratory Exam Respiratory Exam: NORMAL BREATHING PATTERN. absent: Rales, Rhonchi, Wheezes - Cardiovascular Exam Cardiovascular Exam: REGULAR RHYTHM, +S1, +S2. absent: Gallop, Rubs, Systolic Murmur - GI/Abdominal Exam GI & Abdominal Exam: Normal Bowel Sounds, Soft. absent: Mass, Organomegaly, Tenderness - Rectal Exam Rectal Exam: Deferred - Extremities Exam Extremities exam: Negative for: calf tenderness, pedal edema Results - Vital Signs Recent Vital Signs: Last Vital Signs Temp 97.8 F 03/23/18 07:00 Pulse 115 H 03/23/18 07:00 Resp 20 03/23/18 07:00 BP 115/69 03/23/18 07:00 Pulse Ox 95 03/23/18 07:00 - Labs Result Diagrams: 03/21/18 21:34 03/21/18 21:34 Labs: Laboratory Results - last 24 hr 03/22/18 03/22/18 03/22/18 12:03 16:24 19:26 POC Glucose (mg/dL) 161 H 133 H Urine Color [place] Urine Clarity Hazy Urine pH 5.0 Ur Specific [place] 1.024 Urine Protein 1+ H Urine Glucose (UA) Normal Urine Ketones Negative Urine Blood 1+ H Urine Nitrate Negative Urine Bilirubin Negative Urine Urobilinogen 2.0 H Ur Leukocyte Esterase 3+ H Urine WBC (Auto) 719 H Urine RBC (Auto) 218 H Ur Squamous Epith Cells 65 H Urine Bacteria Many H 03/22/18 03/23/18 21:27 06:29 POC Glucose (mg/dL) 124 H 136 H Urine Color Urine Clarity Urine pH Ur Specific [place] Urine Protein Urine Glucose (UA) Urine Ketones Urine Blood Urine Nitrate Urine Bilirubin Urine Urobilinogen Ur Leukocyte Esterase Urine WBC (Auto) Urine RBC (Auto) Ur Squamous Epith Cells Urine Bacteria Assessment & Plan (1) Pancreatic cancer Assessment and Plan: Patient has documented pancreatic cancer, S/P radiation therapy, now with nausea and vomiting, and possible invasion of the greater curvature of the stomach by the cancer on CT scan. Patient should have EGD to corroborate this finding. If the mass is invading the stomach and causing obstruction, it should be palliated by enteral stent or gastrojejunostomy. Will consult Dr. Shea. EGD to be scheduled. Status: Acute
[2018-03-23 15:50] VITALS: O2SAT 97
--- NOTE | 2018-03-23 18:57 | CP.PCM.HP ---
Past Patient History - Infectious Disease Hx of Infectious Diseases: None - Tetanus Immunizations Tetanus Immunization: Unknown - Past Medical History & Family History Past Medical History?: Yes - Past Social History Smoking Status: Never Smoked - CARDIAC Hx Hypercholesterolemia: Yes Hx Hypertension: Yes - PULMONARY Hx Respiratory Disorders: No - NEUROLOGICAL Hx Neurological Disorder: No Other/Comment: "NO LONGER ON GABAPENTIN-NO FURTHER TINGLING." - HEENT Hx HEENT Problems: Yes Hx Cataracts: Yes (BILAT.) - RENAL Hx Chronic Kidney Disease: No - ENDOCRINE/METABOLIC Hx Endocrine Disorders: Yes Hx Diabetes Mellitus Type 2: Yes - HEMATOLOGICAL/ONCOLOGICAL Hx Anemia: Yes - INTEGUMENTARY Hx Dermatological Problems: No - MUSCULOSKELETAL/RHEUMATOLOGICAL Hx Arthritis: Yes (KNEES) - GASTROINTESTINAL Hx Gastrointestinal Disorders: Yes Other/Comment: HX: PANCREATIC MASS - GENITOURINARY/GYNECOLOGICAL Hx Genitourinary Disorders: No - PSYCHIATRIC Hx Substance Use: No - SURGICAL HISTORY Other/Comment: Left breast lumpectomy - ANESTHESIA Hx Anesthesia: Yes Hx Anesthesia Reactions: No Hx Malignant Hyperthermia: No Meds Allergies/Adverse Reactions: Allergies Allergy/AdvReac Type Severity Reaction Status Date / Time No Known Allergies Allergy Verified 03/21/18 21:12 Results - Vital Signs Recent Vital Signs: Last Vital Signs Temp 98 F 03/23/18 15:00 Pulse 120 H 03/23/18 15:00 Resp 20 03/23/18 15:00 BP 108/68 03/23/18 15:00 Pulse Ox 97 03/23/18 15:00 - Labs Result Diagrams: 03/21/18 21:34 03/21/18 21:34 Labs: Laboratory Results - last 24 hr 03/22/18 03/22/18 03/22/18 16:24 19:26 21:27 POC Glucose (mg/dL) 133 H 124 H Urine Color [place] Urine Clarity Hazy Urine pH 5.0 Ur Specific [place] 1.024 Urine Protein 1+ H Urine Glucose (UA) Normal Urine Ketones Negative Urine Blood 1+ H Urine Nitrate Negative Urine Bilirubin Negative Urine Urobilinogen 2.0 H Ur Leukocyte Esterase 3+ H Urine WBC (Auto) 719 H Urine RBC (Auto) 218 H Ur Squamous Epith Cells 65 H Urine Bacteria Many H 03/23/18 03/23/18 03/23/18 06:29 11:23 16:13 POC Glucose (mg/dL) 136 H 123 H 104 Urine Color Urine Clarity Urine pH Ur Specific [place] Urine Protein Urine Glucose (UA) Urine Ketones Urine Blood Urine Nitrate Urine Bilirubin Urine Urobilinogen Ur Leukocyte Esterase Urine WBC (Auto) Urine RBC (Auto) Ur Squamous Epith Cells Urine Bacteria
[2018-03-24] MEDS: HYDROmorphone 0.5 mg/0.5 ml ISec IVP PRN (00:18)
[2018-03-24] MEDS ORDERED: Sodium Bicarbonate (8.4%) 50 Meq Syringe ONE (04:33)
[2018-03-24] MEDS ORDERED: Calcium Gluconate 4.65 mEq/10 ml Inj ONE (04:33)
--- NOTE | 2018-03-24 05:22 | CP.PCM.PRO ---
Pronouncement of Note - Clinical Findings Physical Exam: No Response Verbal/Painful Stimuli, Absent Peripheral Pulses{ Carotid & Femoral}, Absent Heart & Breath Sounds, Pupils Fixed & Dilated, Absence of Vital Signs - Pronouncement Time Time of Pronouncement of : 05:06 - Notifications Pronouncement Notifications: Family Notified, Atending Notified Tax Services Manager Notified: No - Autopsy Autopsy Requested: No - [place] [id number] Additional Comments: Preliminary Certificate printed and placed in chart. Certificate to be completed and certified by primary attending Dr. Silva.
--- NOTE | 2018-03-24 07:36 | PCM.RRT ---
PRIVATE INVESTIGATOR Nurses Assessment - Situation Date: 03/24/18 Time PRIVATE INVESTIGATOR was called: 04:30 PRIVATE INVESTIGATOR Responder Arrival Time:: 04:30 PRIVATE INVESTIGATOR Location:: Med/Surg Room Number: 653A PRIVATE INVESTIGATOR Reason for Call: Hypotension, Change in Mental Status, Looks Sicker PRIVATE INVESTIGATOR Called By: RN - IV IV Inserted during PRIVATE INVESTIGATOR?: No IV Fluids Initiated During PRIVATE INVESTIGATOR?: Yes NS .9% 1000 @1000ml/hr New IV Insertion Tolerance: Good - Respiratory PRIVATE INVESTIGATOR Delivery Method: Non Rebreather @% Received Nebulizer Treatments: No Was the Patient Ventilated with Bag/Mask 100% O2?: No Secretions Suctioned?: No Was the Patient Intubated?: Yes (7.5) Was the Patient Placed on a Ventilator?: No - Medication Medications Administered During PRIVATE INVESTIGATOR: 1st Epi given 4:35. 2nd epi 4:37. BiCarb 4:38. Calcium Chloride 4:40. 3rd epi 4:42. 2nd BiCarb 4:42. 4TH EPI 4:46. 3RD Bicarb 4:47. 5th epi 4:50. 4th Bicarb 4:52. 6th epi 4:55. 5th Bicarb 4: 57 - Diagnostic Test Ordered EKG: Yes Chest X-Ray: Yes CPR started during PRIVATE INVESTIGATOR?: Yes - Vital Signs Vital Signs: Rapid Response Vital Sign Blood Pressure 55/28 Pulse Rate 59 Respiratory Rate 7 - [place] Coma Scale Coma Scale Eye Opening: No response Coma Scale Motor: None Coma Scale Verbal: No response Coma Scale Total: 3 - Sepsis Screen Part 1 Sepsis Screen Part 1: Hypotensive - Time PRIVATE INVESTIGATOR Ended Time PRIVATE INVESTIGATOR Ended: 04:34 - Recommendations Notifications: Attending Physician, Consultations, Family or Designated Caregiver - Respiratory Oxygen Delivery Method: Non Rebreather @% - Constitutional Appears: In Acute Distress - Head Head Exam: ATRAUMATIC, NORMAL INSPECTION - Respiratory Exam Respiratory Exam: Respiratory Distress. absent: NORMAL BREATHING PATTERN ( agonal) - Cardiovascular Exam Additional comments: no pulse palpated - GI/Abdominal Exam GI & Abdominal Exam: Distended - Neurological Exam Neurological Exam: absent: Alert, Awake, Oriented x3 Plan - Assessment of Findings&Treatment Plan PRIVATE INVESTIGATOR was called at 4:25am for altered mental status. Per nursing, patient tried to get out of bed, then her eyes rolled back, and patient became unresponsive. Patients vitals were: HR 57, BP 55/28, glucose 128. 500cc NS bolus started, labs were ordered stat. Pulse then no longer palpated. Patient was intubated. [place] blue was called at 4:34am. Seven rounds of epinephrine, 6 bicarbonate, and 1 calcium gluconate were given during the code. ROSC was never achieved. At 4:57 , code ended. Patient was pronounced at 5:06am. Attending, Dr. Silva, and patient's family were contacted.
[2018-03-24 07:54] VITALS: BP 107/80; PULSE 115; TEMP 98
== END 2018-03-24 06:57 | DRG 436 ==
LOC: C.ER 21:00 → C.9E 22:44 → C.6T 23:22
PROVIDERS: ADMIT Internal Medicine Critical Care Medicine; ATTEND Internal Medicine Critical Care Medicine
DX: C25.9 Malignant neoplasm of pancreas, unspecified (principal); K31.1 Adult hypertrophic pyloric stenosis; R18.8 Other ascites; E11.9 Type 2 diabetes mellitus without complications; I10 Essential (primary) hypertension; K59.00 Constipation, unspecified; Z51.5 Encounter for palliative care; Z87.891 Personal history of nicotine dependence; Z92.3 Personal history of irradiation; M17.0 Bilateral primary osteoarthritis of knee